=== PATIENT | male | born 1950 | race Caucasian/White ===

== ENCOUNTER 2016-12-22 07:29 | Day surgery (SDC) | payer OTHER ==
[~2016-12-22] VITALS: Ht 167.6 cm; Wt 76.0 kg
[2016-12-22] VITALS (16 sets, daily range): BP systolic 105–169; BP diastolic 52–84; PULSE 50–55; RESP 14–24; Ht 167.6 cm; Wt 76.0 kg
[~2016-12-22 07:29] MED LIST: ALLOPURINOL PO; ASPI-535 PO; CAPTOPRIL PO; GLIPIZIDE PO; LEVOTHYROXINE PO; METFORMIN PO
[2016-12-22] MEDS ORDERED: SOD CHLORIDE 0.9% 1,000 ML IV SCH (08:30)
[2016-12-22] MEDS ORDERED: ZOLP5TAB6 PO (08:50)
[2016-12-22] MEDS ORDERED: LATA2.5D2 BOTH EYES (08:50)
[2016-12-22] MEDS ORDERED: MIDAZOLAM 1 MG/ML 2 ML INJ ONE (10:09)
[2016-12-22] MEDS ORDERED: LIDOCAINE 1% (MDV) 20 ML INJ ONE (10:09)
[2016-12-22] MEDS ORDERED: GELATIN 12MM X 7 MM SPONGE ONE (10:09)
[2016-12-22] MEDS ORDERED: FENTAnyl 50 MCG/ML VIAL ONE ×2 (10:09→11:30)
[2016-12-22] MEDS ORDERED: HYDROCODONE/APAP (5/325) TAB PO ONE (13:00)
--- NOTE | 2016-12-22 13:49 | RADRPT ---
PROCEDURE: CT guided right renal biopsy. CLINICAL INDICATION: Medical renal disease. TECHNIQUE: Informed consent was obtained. The procedure, risks, benefits, complications and alternatives were explained to the patient. Risks including bleeding and infection were explained. The patient unders tood and was willing to proceed. A procedural pause was performed. The patient's name, date of [facility] h, and procedure to be performed were verified. One or more of the following dose reduction techni ques were used: Automated exposure control, adjustment of the mA and/or kV according to patient size , use of iterative reconstruction technique. Using local anesthetic, sterile technique and CT guidance, an 18-gauge automated core biopsy needle was used to biopsy the lower pole of the right kidney. Multiple passes were made. Adequate tissue was obtained according to the pathologist present during the procedure. Multiple Gelfoam pledgets m ixed with normal saline were then embolized through the outer cannula of the biopsy needle into the biopsy tract while the needle was removed. A postprocedural scan was performed. A dressing was applied. The patient tolerated procedure well. COMPARISON: None. FINDINGS: Initial images demonstrate the tip of the needle at the posterior margin of the lower pole of the ri ght kidney. Post biopsy images demonstrate no immediate complication. The Gelfoam is noted in the biopsy tract. IMPRESSION: 1. Successful CT guided biopsy of the right kidney for medical renal disease. RPTAT: QQ .Slava Oliver MD, Date Time Electronically viewed and signed by .Slava Oliver MD, on 12/22/2016 13:48 .R/
== END 2016-12-22 14:00 | disposition home or self-care (01) ==
LOC: SDS 07:29
PROVIDERS: ATTEND Internal Medicine Nephrology
DX: N26.9 Renal sclerosis, unspecified (principal); E11.21 Type 2 diabetes mellitus with diabetic nephropathy
CPT/HCPCS: 50200; 77012; 82962; J2250; J3010